=== PATIENT | female | born 1960 | race Caucasian/White ===

== ENCOUNTER 2016-07-05 20:46 | Emergency (ER) | payer MEDICAID ==
[~2016-07-05] VITALS: Ht 157.5 cm; Wt 136.1 kg
[~2016-07-05 20:46] MED LIST: ACTOS15 MG PO; ALBU8.5H2 INH; ASP81CT PO; ATOR20TA66 PO; ATOR40TA70 PO; BACL20TA PO; CETI10TA17 PO; CHLO237L3 TP; CIPR500T4 PO; CLOP75TA28 PO; CLPD75T PO; DIAZ-345 PO; DIAZ5TAB3 PO; DICL75TA2 PO; DIPH25CA79 PO; DOXY100C2 PO; DOXY100T2 PO; DULO30CA PO; EZET10TA23 PO; EZET10TA5 PO; FENO145T18 PO; FENO145T2 PO; FENO145T20 PO; FLUT1DIS26 INH; FLUT1DIS28 IH; FLUT9.9S NS; FURO20TA4 PO; FURO40TA4 PO; GABA-488 PO; HYDR-1231 PO; HYDR-34 PO; INSASP10V SC; INSU100C4 SQ; INSU100V16 SC; INSU100V5 SC; INSU100V5 SQ; INSU100V6 SQ; ISOS30TA3 PO; KCL20TCR PO; LEVO200T6 PO; LEVO25TA5 PO; LIPA1CAP PO; MAGN400T39 PO; MELO-195 PO; MELO-198 PO; MELO15TA39 PO; METF500T8 PO; METO25TA2 PO; METO25TA6 PO; MORP15TA8 PO; MTF500T PO; MULT-1029 PO; NITR-65 PO; NITR0.4T3 SL; OMEG-105 PO; OMEG1CAP PO; OMEG1CAP51 PO; OMEP20CA12 PO; OMEP40CA36 PO; ORPH100T PO; PANT40TA3 PO; PGLT30T PO; PNCRC PO; PNT40TEC PO; POTA20TA15 PO; PRAM0.252 PO; PRAM0.257 PO; PRAM0.5T9 PO; PRED10TA PO; PREG100C22 PO; PREG150C PO; PRM25T PO; QUET200T28 PO; QUET400T PO; QUET400T12 PO; RNT150T PO; RT-ALBUINH INH; SILV25CR TOP; SULF1TAB38 PO; TIZA4TAB55 PO; TRAM50TA2 PO; ZLP10T PO
--- OUTSIDE RECORDS SUMMARY | 2016-07-05 20:53 | XMS REPORT | Continuity of Care Document ---
Author Author [facility] Organization [facility] Address Unknown Phone Unavailable Care Team Providers Care Hand Expansion Envelope Maker Name Role Phone Unknown, Unknown PCP Unavailable Source Comments Some departments are not documenting in the electronic medical record. If you do not see the information that you expected, contact Release of Information in the Health Information Management department at [phone] for further assistance in locating additional records.[facility] Active Allergies and Adverse Reactions Allergen Noted Date Severity Reactions Comments Bactrim 06/18/2014 HIVES, RASH, SHORTNESS OF BREATH Pcn 06/18/2014 HIVES, RASH, SHORTNESS OF BREATH Current Medications Prescription Sig. Disp. Refills Start End Date Status Date HYDROcodone-acetaminophen Take 1 Tab by mouth every Active (+) (NORCO) 7.5-325 mg 4 hours as needed. tablet isosorbide mononitrate SR Take 30 mg by mouth twice Active (IMDUR) 30 mg tablet daily. pancrelipase (CREON) Take by mouth three Active 6,000-19,000 -30,000 times daily with meals. units pregabalin (LYRICA) 100 Take 100 mg by mouth Active mg capsule three times daily. cetirizine (ZYRTEC) 10 mg Take 10 mg by mouth Active tablet daily. ezetimibe (ZETIA) 10 mg Take 10 mg by mouth Active tablet daily. insulin detemir(+) Inject 75 Units into Active (LEVEMIR) 100 unit/mL area(s) as directed twice soln daily before meals. potassium chloride SR Take 20 mEq by mouth Active (K-DUR) 20 mEq tablet daily. furosemide (LASIX) 40 mg Take 40 mg by mouth Active tablet daily. meloxicam (MOBIC) 7.5 mg Take 7.5 mg by mouth Active tablet daily. omeprazole DR(+) Take 20 mg by mouth Active (PRILOSEC) 20 mg capsule daily. levothyroxine (SYNTHROID) Take by mouth. 100 mcg Active 200 mcg tablet on Sundays. 200 mcg on all other days fenofibrate Take 145 mg by mouth Active nanocrystallized (TRICOR) daily. 145 mg tablet MULTIVITAMIN PO Take 1 Tab by mouth Active daily. pramipexole (MIRAPEX) Take 0.5 mg by mouth at Active 0.25 mg tablet bedtime daily. INSULIN ASPART (NOVOLOG Inject 40 Units into Active SC) area(s) as directed three times daily with meals. diazepam (VALIUM) 5 mg Take 5 mg by mouth daily. Active tablet [place]-3 Acid Ethyl Esters Take 2 g by mouth twice Active (LOVAZA) 1 gram cap daily with meals. aspirin 81 mg chewable Take 81 mg by mouth Active tablet daily. metoprolol (LOPRESSOR) 25 Take 25 mg by mouth Active mg tablet daily. clopiDOGrel (PLAVIX) 75 Take 75 mg by mouth Active mg tablet daily. atorvastatin (LIPITOR) 40 Take 40 mg by mouth Active mg tablet daily. QUEtiapine (SEROQUEL) 200 Take 400 mg by mouth Active mg tablet twice daily. metFORMIN-XR(+) Take 1,000 mg by mouth Active (GLUCOPHAGE XR) 500 mg twice daily with meals. tablet Active Problems Problem Noted Date Achalasia 06/18/2014 Most Recent Encounters Date Type Specialty Providers Description 07/02/2016 Orders Only Orthopedic Surgery Rebecca Staley MD Spinal stenosis of lumbar region (Primary Dx) Social History Tobacco Use Types Packs/Day Years Used Date Former Smoker Cigarettes 1 42 Quit: 02/22/2014 Smokeless Tobacco: Current User Comments: using vapor cigarette Alcohol Use Drinks/Week oz/Week Comments No Last Filed Vital Signs Vital Sign Reading Time Taken Blood Pressure 152/68 06/24/2014 2:00 PM TRAFFIC II MANAGER Pulse 116 06/24/2014 2:00 PM TRAFFIC II MANAGER Temperature 36.7 C (98 F) 06/24/2014 2:00 PM TRAFFIC II MANAGER Respiratory Rate 18 06/18/2014 1:31 PM TRAFFIC II MANAGER Height 1.651 m (5' 5") 06/24/2014 2:00 PM TRAFFIC II MANAGER Weight 90 kg (198 lb 6.6 oz) 06/24/2014 2:00 PM TRAFFIC II MANAGER Body Mass Index 33.02 06/24/2014 2:00 PM TRAFFIC II MANAGER Oxygen Saturation 92% 06/24/2014 2:00 PM TRAFFIC II MANAGER Plan of Care Date Type Specialty Providers Description 07/08/2016 Appointment Orthopedic Surgery Rebecca Staley MD [address] [facility] [address] [place] [address] [phone] (Fax) Health Maintenance Due Date Last Done Comments Hepatitis C Screening 1959 Physical (Comprehensive) 1966 Exam Pertussis Vaccine 1970 Tetanus Vaccine 1976 Cervical Cancer Screening 1980 Breast Cancer Screening 1999 Colorectal Cancer 2009 Screening Influenza Vaccine 03/04/2016 Results from Last 3 Months Not on file
--- NOTE | 2016-07-05 21:13 | ED CPR ---
HPI-CPR General Stated Complaint: UNRESPONSIVE Source of Information: EMS, Police, RN Notes Reviewed Exam Limitations: Physical Impairments, Other History of Present Illness Time Seen by Provider: 20:48 Initial Comments CODE BLUE Witnessed Arrest: No (Found unresponsive on the commode) Bystander CPR: Yes Down-Time Before ACLS: 10' p/ being found unresponsive Paramedics Initial Findings: Asystole, No Pulse, No Respirations, Unresponsive Pre Hospital Treatment: Bag Valve Mask, CPR/Thumper, Oxygen, IV Fluids, Epinephrine (mg) (two), Sodium Bicarb (amps) (one) Allergies and Home Medications Allergies Coded Allergies: sulfamethoxazole (Unverified Allergy, Unknown, 08/28/14) trimethoprim (Unverified Allergy, Unknown, 08/28/14) Penicillins (Verified Adverse Reaction, Mild, rash, 09/02/11) Home Medications Albuterol Sulfate 8.5 Gm Hfa.aer.ad 2 PUFF INH Q4H PRN PRN SHORTNESS OF BREATH ( Reported) Aspirin 81 Mg Chew 81 MG PO DAILY (Reported) Atorvastatin Calcium 40 Mg Tablet 40 MG PO HS (Reported) LAST FILLED #30 01-17-15 Clopidogrel Bisulfate 75 Mg Tablet 75 MG PO DAILY (Reported) Diazepam 5 Mg Tablet 5 MG PO HS (Reported) Diclofenac Sodium 75 Mg Tablet.dr 75 MG PO BID (Reported) Ezetimibe 10 Mg Tablet 10 MG PO DAILY @ 1200 (Reported) Fenofibrate Nanocrystallized 145 Mg Tablet 145 MG PO DAILY @ 1200 (Reported) LAST FILLED #30 01-17-15 Fenofibrate Nanocrystallized 145 Mg Tablet 145 MG PO DAILY (Reported) Fluticasone Propionate 9.9 Ml [place].susp 1 SPRAY NS DAILY (Reported) Fluticasone/Salmeterol 1 Each Blst.w.dev 1 PUFF INH BID (Reported) Fluticasone/Salmeterol 1 Each Blst.w.dev 1 EACH IH DAILY (Reported) Furosemide 20 Mg Tablet 20 MG PO DAILY (Reported) Insulin Aspart 100 Unit/1 Ml Susp 30Days 44 UNIT SC AC Prescribed by: GIUSEPPE ARROYO on 08/19/15 1232 Insulin Determir 1,000 Units/10 Ml Soln 30Days 83 UNIT SQ BID Prescribed by: GIUSEPPE ARROYO on 08/19/15 1232 Isosorbide Mononitrate 30 Mg Tab.er.24h 30 MG PO DAILY (Reported) Levothyroxine Sodium 25 Mcg Tablet 25 MCG PO DAILY (Reported) TAKES ALONG WITH 200MCG LEVOTHYROXINE Nitrofurantoin Monohyd/M-Cryst 100 Mg Capsule #20 100 MG PO BID Prescribed by: GARLAND SILVA on 06/19/16 0540 Nitroglycerin 0.4 Mg Tab.subl 0.4 MG SL UD PRN PRN CHEST PAIN (Reported) TAKE 1 TAB SL EVERY 5 MINUTES FOR CHEST PAIN [place]-3 Acid Ethyl Esters 1 Gm Capsule 2 GM PO BID (Reported) TAKES 2 (1GM) CAPSULES Omeprazole 40 Mg Capsule.dr 40 MG PO DAILY (Reported) Orphenadrine Citrate 100 Mg Tablet.er 100 MG PO BID (Reported) Potassium Chloride 20 Meq Tab.er.prt 20 MEQ PO BID (Reported) LAST FILLED #60 01-10-15 Pramipexole Di-HCl 0.5 Mg Tablet 1.5 MG PO DAILY @ 1800 (Reported) TAKES 3 (0.5MG) TABLETS Pregabalin 150 Mg Capsule 150 MG PO TID (Reported) Review of Systems Constitutional: see HPI (unable to obtain) Past Acnrvfb-Xeuoyv-Fiigcd Hx Patient Social History Former Smoker/When Quit: Mar 08, 2015 Recent Foreign Travel: No Contact w/Someone Who Travel: No Recent Hopitalizations: No Immunizations Up To Date Tetanus Booster (TDap): Unknown Date of Pneumonia Vaccine: Feb 01, 2013 Date of Influenza Vaccine: Aug 29, 2014 Seasonal Allergies Seasonal Allergies: No Surgeries HX Surgeries: Yes (STENTS X8, HYSTERECTOMY/OVARIES INTACT; LEFT KNEE SCOPE; TOENAIL REMOVAL) Surgeries: Abdominal, Cardiac, Coronary Stent, Gallbladder, Hysterectomy, Orthopedic, Vascular Surgery Respiratory Hx Respiratory Disorders: Yes (USES CPAP; O2 AT 2L/NC CONTINUOUSLY) Respiratory Disorders: Sleep Apnea, COPD Cardiovascular Hx Cardiac Disorders: Yes ( CAD--STENTS X 8) Cardiac Disorders: Coronary Artery Disease, Deep Vein Thrombosis, High Cholesterol, Hypertension, Peripheral Vascular Neurological Hx Neurological Disorders: Yes (TIA WHEN SHE WAS 19, ) Neurological Disorders: Neuropathy, TIA Reproductive System Hx Reproductive Disorders: Yes (1 miscarriage/2 stillbirths) Sexually Transmitted Disease: No HIV/AIDS: No Female Reproductive Disorders: Denies TECHNICAL SALES SUPPORT SPECIALIST History: Hysterectomy, Menopausal Genitourinary Hx Genitourinary Disorders: Yes Genitourinary Disorders: Bladder Infection Gastrointestinal Hx Gastrointestinal Disorders: Yes (PROBLEMS SWALLOWING;) Gastrointestinal Disorders: Gastroesophageal Reflux, Pancreatitis, Ulcer Musculoskeletal Hx Musculoskeletal Disorders: Yes (OSTEOARTHRITIS) Musculoskeletal Disorders: Degenerate Disk Disease, Arthritis, Fibromyalgia, Chronic Back Pain Endocrine Hx Endocrine Disorders: Yes (TYPE II DM) Endocrine Disorders: Diabetes, Insulin dep, Hypothyroidsim HEENT HX ENT Disorders: Yes (GLASSES, DENTURES) Loss of Vision: Bilateral Hearing Impairment: Denies Cancer Hx Cancer: Yes Cancer: Cervical Psychosocial Hx Psychiatric Problems: Yes Behavioral Health Disorders: Anxiety, Bipolar, Schizophrenia, Depression Integumentary HX Skin/Integumentary Disorder: No Blood Transfusions Hx Blood Disorders: Yes (DVT) Adverse Reaction to a Blood Tr: No Family Medical History Family Medial History: Alcoholism 19 MOTHER, Onset:Unknown G8 SISTER, Onset:Unknown Alzheimer's disease 19 MOTHER, Onset:Unknown Arthritis G8 BROTHER, Onset:Unknown G8 SISTER, Onset:Unknown SON, Onset:Unknown Cardiovascular disease 19 FATHER, Onset:Unknown Cataracts 19 MOTHER, Onset:Unknown Diabetes mellitus 19 MOTHER, Onset:Unknown SON, Onset:Unknown Drug abuse 19 MOTHER, Onset:Unknown FH: lung cancer G8 BROTHER, Onset:Unknown G8 SISTER, Onset:Unknown FH: stomach ulcer G8 SISTER, Onset:Unknown SON, Onset:Unknown FH: stroke G8 BROTHER, Onset:Unknown FH: throat cancer SON, Onset:Unknown Glaucoma 19 MOTHER, Onset:Unknown Thyroid disease G8 SISTER, Onset:Unknown Physical Exam Vital Signs Vital Sign - Last 12Hours 07/05/16 20:48 Pulse 0 Resp 0 Pulse Ox 100 O2 Delivery Ambu-Bag Capillary Refill : General Appearance: No Apparent Distress WD/WN Obese HEENT: Other (pupils fixed and dilated) Respiratory: Other (no respiratory effort) Cardiovascular: Other (no cardiac activity or pulse) Gastrointestinal: Distended Rectal: Deferred Extremity: Other (I/O left tibia) Neurologic/Psychiatric: Other (unresponsive) Progress/Results/Core Measures Results/Orders Lab Results Laboratory Tests Test 07/05/16 21:07 Range/Units Activated Partial Thromboplast Time 59 H 24-35 SEC Alanine Aminotransferase (ALT/SGPT) 64 H 0-55 U/L Albumin 3.0 L 3.2-4.5 G/DL Alkaline Phosphatase 230 H 40-136 U/L Anion Gap 35 H 5-14 MMOL/L Aspartate Amino Transf (AST/SGOT) 102 H 5-34 U/L BUN/Creatinine Ratio 8 Band Neutrophils 7 % Basophils # (Auto) 0.5 H 0.0-0.1 10^3/uL Basophils % (Manual) 0 % Basophils (%) (Auto) 3 0-10 % Blood Urea Nitrogen 14 7-18 MG/DL Calcium Level 9.1 8.5-10.1 MG/DL Carbon Dioxide Level 14 L 21-32 MMOL/L Chloride Level 91 L 98-107 MMOL/L Creatinine 1.72 H 0.60-1.30 MG/DL Eosinophils # (Auto) 0.2 0.0-0.3 10^3/uL Eosinophils % (Manual) 1 % Eosinophils (%) (Auto) 1 0-10 % Estimat Glomerular Filtration Rate 31 Glucose Level 1206 *H 70-105 MG/DL Hematocrit 40 35-52 % Hemoglobin 12.2 11.5-16.0 G/DL INR Comment 1.4 0.8-1.4 Lymphocytes # (Auto) 7.1 H 1.0-4.0 X 10^3 Lymphocytes % (Manual) 39 % Lymphocytes (%) (Auto) 39 12-44 % Macrocytosis MARKED Magnesium Level 2.3 1.8-2.4 MG/DL Mean Corpuscular Hemoglobin 35 H 25-34 PG Mean Corpuscular Hemoglobin Concent 31 L 32-36 G/DL Mean Corpuscular Volume 114 H 80-99 FL Mean Platelet Volume 12.5 H 7.4-10.4 FL Metamyelocytes % 4 % Monocytes # (Auto) 1.1 H 0.0-1.0 X 10^3 Monocytes % (Manual) 4 % Monocytes (%) (Auto) 6 0-12 % Myoglobin 983.9 H 10.0-92.0 NG/ML Neutrophils # (Auto) 9.3 H 1.8-7.8 X 10^3 Neutrophils % (Manual) 38 % Neutrophils (%) (Auto) 51 42-75 % Nucleated Red Blood Cells 2 Platelet Count 159 130-400 10^3/uL Potassium Level 4.1 3.6-5.0 MMOL/L Prothrombin Time 16.8 H 12.2-14.7 SEC Reactive Lymphocytes 7 % Red Blood Count 3.49 L 4.35-5.85 10^6/uL Red Cell Distribution Width 14.3 10.0-14.5 % Sodium Level 140 135-145 MMOL/L Total Bilirubin 0.8 0.1-1.0 MG/DL Total Protein 6.5 6.4-8.2 G/DL Troponin I < 0.30 <0.30 NG/ML White Blood Count 18.2 H 4.3-11.0 10^3/uL My Orders Orders-NICHOL ARREOLA DO Cbc With Automated Diff (07/05/16 21:06) Magnesium (07/05/16 21:06) Ekg Tracing (07/05/16 21:06) Cardiac Profile 1 (07/05/16 21:06) Comprehensive Metabolic Panel (07/05/16 21:06) Myoglobin Serum (07/05/16 21:06) Protime With Inr (07/05/16 21:06) Partial Thromboplastin Time (07/05/16 21:06) O2 (07/05/16 21:06) Monitor-Rhythm Ecg Trace Only (07/05/16 21:06) Saline Lock/Iv-Start (07/05/16 21:06) Manual Differential (07/05/16 21:07) Vital Signs/I&O Vital Sign - Last 12Hours 07/05/16 07/05/16 07/06/16 20:48 20:48 00:25 Pulse 0 0 Resp 0 0 0 B/P Pulse Ox 100 0 O2 Delivery Ambu-Bag T Piece Progress Note : Progress Note Please refer to the code blue record of the ACLS care provided to the patient. Patient was intubated by respiratory successfully c/ 7.5 ETT on first attempt. Essentially non-stop CPR was provided during the entire event. Departure Communication Time/Spoke to Admitting Phy: 22:30 Impression Impression: Primary Impression: due to cardiac arrest Additional Impression: Suspected DKA per lab Disposition: 20 Condition: Departure-Patient Inst. Referrals: [facility] (PCP/Family) Primary Care Physician NICHOL ARREOLA DO Jul 05, 2016 21:13
[2016-07-05 21:28] LABS: BASOPHILS # (AUTO) 0.5 10^3/uL (0.0-0.1); BASOPHILS % (AUTO) 3 % (0-10); EOSINOPHILS # (AUTO) 0.2 10^3/uL (0.0-0.3); EOSINOPHILS % (AUTO) 1 % (0-10); LYMPHOCYTES # (AUTO) 7.1 X 10^3 (1.0-4.0); LYMPHOCYTES % (AUTO) 39 % (12-44); MEAN CORPUSCULAR HEMOGLOBIN 35 PG (25-34); MEAN CORPUSCULAR HGB CONC 31 G/DL (32-36); MEAN CORPUSCULAR VOLUME 114 FL (80-99); MEAN PLATELET VOLUME 12.5 FL (7.4-10.4); MONOCYTES # (AUTO) 1.1 X 10^3 (0.0-1.0); MONOCYTES % (AUTO) 6 % (0-12); NEUTROPHILS # (AUTO) 9.3 X 10^3 (1.8-7.8); NEUTROPHILS % (AUTO) 51 % (42-75); PLATELET COUNT 159 10^3/uL (130-400); RED BLOOD COUNT 3.49 10^6/uL (4.35-5.85); RED CELL DISTRIBUTION WIDTH 14.3 % (10.0-14.5); WHITE BLOOD COUNT 18.2 10^3/uL (4.3-11.0)
[2016-07-05 21:42] LABS: INR 1.4 (0.8-1.4); PROTHROMBIN TIME PATIENT 16.8 SEC (12.2-14.7)
[2016-07-05 21:43] LABS: BAND NEUTROPHILS 7 %; BASOPHILS % (MANUAL) 0 %; EOSINOPHILS % (MANUAL) 1 %; LYMPHOCYTES % (MANUAL) 39 %; METAMYELOCYTES % 4 %; NEUTROPHILS % (MANUAL) 38 %; REACTIVE LYMPHOCYTES 7 %
[2016-07-05 21:53] LABS: ALANINE AMINOTRANSFERASE 64 U/L (0-55); ANION GAP 35 MMOL/L (5-14); ASPARTATE AMINO TRANSFERASE 102 U/L (5-34); BILIRUBIN,TOTAL 0.8 MG/DL (0.1-1.0); BLOOD UREA NITROGEN 14 MG/DL (7-18); BUN/CREATININE RATIO 8; CALCIUM 9.1 MG/DL (8.5-10.1); CARBON DIOXIDE 14 MMOL/L (21-32); CHLORIDE 91 MMOL/L (98-107); CREATININE SERUM 1.72 MG/DL (0.60-1.30); GFR ESTIMATED 31; MAGNESIUM 2.3 MG/DL (1.8-2.4); POTASSIUM 4.1 MMOL/L (3.6-5.0); SODIUM 140 MMOL/L (135-145); TOTAL PROTEIN 6.5 G/DL (6.4-8.2)
[2016-07-05 21:55] LABS: GLUCOSE 1206 MG/DL (70-105)
[2016-07-05 21:57] LABS: MYOGLOBIN SERUM 983.9 NG/ML (10.0-92.0)
[2016-07-05] MEDS ORDERED: EPINEPHrine 0.1 MG/ML 10 ML (HOSPIRA) SYR INJ ONE (22:30)
[2016-07-05] MEDS ORDERED: ATROPINE INJECTION 1 MG/10 ML SYR (ABBOTT) INJ ONE (22:30)
[2016-07-05] MEDS ORDERED: LIDOCAINE BOLUS 100 MG/5 ML (IMS) SYR INJ ONE (22:30)
[2016-07-05] MEDS ORDERED: SODIUM BICARB 8.4% 50 MEQ/50 ML (ABBOTT) SYR INJ ONE (22:30)
[2016-07-06 00:25] VITALS: BP 0/0
== END 2016-07-06 00:25 | disposition expired ==
LOC: EDUNIT# 20:46 → ER 20:47
DX: I46.9 Cardiac arrest, cause unspecified (principal); I10 Essential (primary) hypertension; E11.9 Type 2 diabetes mellitus without complications; J44.9 Chronic obstructive pulmonary disease, unspecified; I25.10 Atherosclerotic heart disease of native coronary artery without angina pectoris; Z79.82 Long term (current) use of aspirin; Z79.899 Other long term (current) drug therapy; Z79.4 Long term (current) use of insulin; Z79.02 Long term (current) use of antithrombotics/antiplatelets; Z95.5 Presence of coronary angioplasty implant and graft
CPT/HCPCS: 31500; 36415; 80053; 83735; 83874; 84484; 85007; 85027; 85610; 85730; 93041; 99291